=== PATIENT | male | born 1935 | race Caucasian/White ===

== ENCOUNTER 2019-05-12 14:53 | Inpatient (IN) | payer MEDICARE, OTHER ==
[~2019-05-12] VITALS: Ht 182.9 cm; Wt 103.0 kg
[~2019-05-12 14:53] MED LIST: PIPERACILLIN /TAZOBACTAM 3.375 G in IV D5W 50 ML IV ONE
--- NOTE | 2019-05-12 15:00 | NUR ---
LEONARDO MARCUS FROM [facility],DARK VOMITUS SINCE LAST NIGHT. PATIENT A/OX2-3, BREATHING EVEN AND UNLABORED, ATTACHED TO THE MONITOR, NO EPISODE OF VOMITING AT THIS TIME. KEPT COMFORTABLE, NEEDS ATTENDED.WAITING FOR MD SOLITARIO.
[2019-05-12 16:01] LABS: BASOPHILS # (AUTO) 0.1 /CMM (0.0-0.2); BASOPHILS % (AUTO) 0.3 % (0.0-2.0); HEMATOCRIT 54 % (39-51); HEMOGLOBIN 18.4 g/dL (13.5-17.5); LYMPHOCYTES % (AUTO) 5.8 % (20.0-44.0); MEAN CORPUSCULAR HGB CONC 34 g/dl (31.0-36.0); MEAN CORPUSCULAR VOLUME 95 fL (80-96); MONOCYTES # (AUTO) 1.3 /CMM (0.1-1.30); MONOCYTES % (AUTO) 7.3 % (2.0-12.0); NEUTROPHILS # (AUTO) 15.3 /CMM (1.8-8.9); NEUTROPHILS % (AUTO) 86.6 % (43.0-81.0); PLATELET COUNT (AUTO) 236 /CMM (150-450); RED BLOOD CELL COUNT(AUTO) 5.65 MIL/uL (4.5-6.0); WHITE BLOOD COUNT (AUTO) 17.7 K/uL (4.3-11.0)
[2019-05-12 16:13] LABS: ALANINE AMINOTRANSFERASE 19 U/L (12-78); ALBUMIN 3.1 g/dL (3.4-5.0); ALKALINE PHOSPHATASE 63 U/L (46-116); ASPARTATE AMINOTRANSFERASE 15 U/L (15-37); BILIRUBIN,DIRECT 0.1 mg/dL (0.0-0.2); BILIRUBIN,TOTAL 0.7 mg/dL (0.2-1.0); CALCIUM, SERUM 9.5 mg/dL (8.5-10.1); CARBON DIOXIDE 28 mmol/L (21-32); CHLORIDE 100 mmol/L (98-107); GLUCOSE 156 mg/dL (74-106); POTASSIUM 3.7 mmol/L (3.5-5.1); SODIUM SERUM 138 mmol/L (136-145); TOTAL PROTEIN, SERUM 7.2 g/dL (6.4-8.2); UREA NITROGEN, BLOOD 20 mg/dL (7-18)
[2019-05-12] MEDS ORDERED: ONDANSETRON HCL/PF 4 MG/2 ML VIAL ONE (16:26)
[2019-05-12] MEDS ORDERED: IV NS 0.9% 1,000 ML BAG IV ONE (16:30)
[2019-05-12] MEDS ORDERED: ONDANSETRON HCL/PF 4 MG/2 ML VIAL IV ONE (16:30)
--- NOTE | 2019-05-12 17:00 | NUR ---
PATIENT HAD AN EPISODE OF DIARRHEA. PERICARE PROVIDED.
[2019-05-12] MEDS ORDERED: CHOL100044 PO (17:52)
[2019-05-12] MEDS ORDERED: ASPI-1152 PO (17:52)
[2019-05-12] MEDS ORDERED: HYDR-4384 PO (17:52)
[2019-05-12] MEDS ORDERED: DIPH1TAB PO (17:52)
[2019-05-12] MEDS ORDERED: GABA-532 PO (17:52)
[2019-05-12] MEDS ORDERED: FOLI1TAB16 PO (17:52)
--- NOTE | 2019-05-12 19:14 | NUR ---
PT RECEIVED FROM JAUN EASLEY FOR RILEY. AWAITITNG ROOM FOR ADMISSION. NAD NOTED.
[2019-05-12] MEDS ORDERED: NA PHOS,M-B/NA PHOS,DI-BA 1 EA ENEMA RC ONE (19:32)
--- NOTE | 2019-05-12 19:45 | NUR ---
VERBAL ORDER RECEIVED FOR 1L NS BOLUS
--- NOTE | 2019-05-12 19:57 | NUR ---
MD AT BEDSIDE FOR RECTAL DISEMPACTION. ENEMA ALSO ADMINISTERED.
[2019-05-12] MEDS ORDERED: PIPERACILLIN /TAZOBACTAM 3.375 G in IV D5W 50 ML IV ONE (20:30)
[2019-05-12] MEDS ORDERED: ONDANSETRON HCL/PF 4 MG/2 ML VIAL IVP PRN (21:00)
[2019-05-12] MEDS ORDERED: ACETAMINOPHEN 325 MG TABLET PO PRN (21:00)
[2019-05-12] MEDS ORDERED: Z GUARD REMEDY 2 OZ OINT TP PRN (21:00)
[2019-05-12] MEDS ORDERED: MAG HYDROX/AL HYDROX/SIMETH 30 ML UDC PO PRN (21:00)
[2019-05-12] MEDS ORDERED: MAGNESIUM HYDROXIDE 30 ML UDC PO PRN (21:00)
--- NOTE | 2019-05-12 21:09 | NUR ---
REPORT GIVEN TO JAUN RODAS FOR RILEY. PT GOING TO 328-2
--- NOTE | 2019-05-12 21:15 | NUR ---
PT TRANSPORTED TO UNIT WITH EMT AT BEDSIDE. NAD NOTED UPON DISCHRGE TO UNIT. PT IN STABLE CONDITION. TRANSPORTED ON [place]
--- NOTE | 2019-05-12 21:20 | NUR ---
MS RN ADMITTING NOTES RECEIVED PT FROM ER VIA [facility]. PT A/O X3 AND ABLE TO MAKE NEEDS KNOWN. RESPIRATIONS EVEN AND UNLABORED WITH NO S/S OF ACUTE DISTRESS OR SOB NOTED. NO COMPLAINTS OF PAIN AT THIS TIME. PT WITH RWRIST #20G RUNNING NS @75ML/HR. BED IN LOWEST LOCKED POSITION WITH SIDE RAILS UP X2. ORIENTED PT TO UNIT AND ROOM. CALL LIGHT WITHIN REACH. WILL CONTINUE TO MONITOR.
[2019-05-12 22:00] VITALS: BP 118/78
[2019-05-12] MEDS: IV NS 0.9% 1,000 ML IV PRN (22:10)
[2019-05-12] MEDS: GABAPENTIN 100 MG CAPSULE PO SCH (22:11)
[2019-05-13] MEDS ORDERED: PIPERACILLIN /TAZOBACTAM 3.375 G VIAL IV ONE (02:29)
[2019-05-13] MEDS ORDERED: PIPERACILLIN /TAZOBACTAM 3.375 G in IV D5W 50 ML IV ONE (03:00)
[2019-05-13 06:54] LABS: BASOPHILS % (AUTO) 0.1 % (0.0-2.0); EOSINOPHILS % (AUTO) 0.1 % (0.0-6.0); HEMATOCRIT 49 % (39-51); HEMOGLOBIN 16.4 g/dL (13.5-17.5); LYMPHOCYTES % (AUTO) 16.7 % (20.0-44.0); MEAN CORPUSCULAR HGB CONC 34 g/dl (31.0-36.0); MEAN CORPUSCULAR VOLUME 95 fL (80-96); MONOCYTES # (AUTO) 1.1 /CMM (0.1-1.30); MONOCYTES % (AUTO) 9.4 % (2.0-12.0); NEUTROPHILS % (AUTO) 73.7 % (43.0-81.0); PLATELET COUNT (AUTO) 206 /CMM (150-450); RED BLOOD CELL COUNT(AUTO) 5.16 MIL/uL (4.5-6.0); WHITE BLOOD COUNT (AUTO) 12.2 K/uL (4.3-11.0)
[2019-05-13 07:22] LABS: CALCIUM, SERUM 8.3 mg/dL (8.5-10.1); CARBON DIOXIDE 29 mmol/L (21-32); CHLORIDE 104 mmol/L (98-107); CREATININE 1.1 mg/dL (0.6-1.3); GLUCOSE 111 mg/dL (74-106); MAGNESIUM 1.7 mg/dL (1.8-2.4); SODIUM SERUM 143 mmol/L (136-145); UREA NITROGEN, BLOOD 17 mg/dL (7-18)
[2019-05-13 07:42] LABS: CHOLESTEROL 165 mg/dL (<200); HDL CHOLESTEROL 44 mg/dL (40-60); LDL 107 mg/dL (0-99); THYROID STIMULATING HORMONE 0.433 uIU/mL (0.358-3.74); TRIGLYCERIDES 116 mg/dL (30-150)
[2019-05-13 08:00] VITALS: BP 118/74
--- NOTE | 2019-05-13 08:05 | NUR ---
RN MS OPENING NOTES Patient received on room air, no sob noted. Patient comfortable lying down on bed, denies pain at this time. A/O x3. Patient remains on diaper, right wrist #20 remains open, infusing NS 75 mL per hour. Bed at the lowest setting, call light within reach.
--- NOTE | 2019-05-13 08:06 | NUR ---
MS RN NOTES PT IN BED AWAKE AND ABLE TO MAKE NEEDS KNOWN. PT A/O X3. RESPIRATIONS EVEN AND UNLABORED WITH NO S/S OF ACUTE DISTRESS OR SOB NOTED THROUGHOUT SHIFT. PT KEPT CLEAN, DRY, AND COMFORTABLE. NO COMPLAINTS OF PAIN AT THIS TIME. PT WITH RWRIST #20G RUNNING NS @75ML/HR. BED IN LOWEST LOCKED POSITION WITH SIDE RAILS UP X2. CALL LIGHT WITHIN REACH. WILL ENDORSE TO ONCOMING NURSE FOR RILEY.
[2019-05-13] MEDS: CHOLECALCIFEROL 1,000 UNIT TABLET (VIT D3) PO SCH (08:56)
[2019-05-13] MEDS: FAMOTIDINE (20 MG) 20 MG TABLET PO SCH ×2 (08:56→16:22)
[2019-05-13] MEDS: ASPIRIN EC 81 MG TABLET.DR PO SCH (08:56)
[2019-05-13] MEDS: FOLIC ACID 1 MG TABLET PO SCH (08:56)
[2019-05-13] MEDS: PIPERACILLIN /TAZOBACTAM 3.375 G in IV D5W 100 ML IV SCH ×2 (09:00→16:14)
[2019-05-13] MEDS ORDERED: PIPERACILLIN /TAZOBACTAM 3.375 G in IV D5W 50 ML IV SCH (09:00)
[2019-05-13] MEDS ORDERED: POTASSIUM CHLORIDE 20 MEQ POWDER PACKET PO SCH (09:30)
[2019-05-13] MEDS ORDERED: MORPHINE SULFATE INJ 2 MG/ML DISP.SYRIN IV PRN (09:32)
[2019-05-13] MEDS ORDERED: LORAZEPAM INJ 2 MG/ML VIAL IV PRN (10:00)
[2019-05-13] MEDS ORDERED: Magnesium 1GM/D5W 100ML PREMIX 100 ML IV SCH (10:00)
[2019-05-13] MEDS: POTASSIUM CL. PREMIX PERIPHER. 50 ML IV SCH ×2 (10:00→11:00)
[2019-05-13] MEDS ORDERED: Magnesium 1GM/D5W 100ML PREMIX PIGGYBACK IV ONE (10:00)
[2019-05-13] MEDS ORDERED: POTASSIUM CHLORIDE 10 MEQ/50 ML PREMIXED IVPB FOR PERIPHERAL LINE IV ONE (10:00)
--- NOTE | 2019-05-13 11:37 | NUR ---
RN MS NOTES Patient wanted the NGT removed, asked patient 3x if he was sure, explained the benefits of the tube but he still insists on taking it out. Dr Yeung aware.
--- NOTE | 2019-05-13 12:59 | NUR ---
RN MS notes Bladder scan revealed 15-25 mL or urine. Will do a straight cath when it is higher.
[2019-05-13] MEDS: METOCLOPRAMIDE HCL 10 MG/2 ML VIAL IV SCH ×2 (14:35→20:57)
[2019-05-13] MEDS: POLYETHYLENE GLYCOL 3350 17 GM POWD.PACK PO SCH ×2 (15:13→21:02)
[2019-05-13] MEDS: SENNOSIDES/DOCUSATE SODIUM 1 TAB TABLET PO SCH ×2 (15:14→21:02)
[2019-05-13 16:00] VITALS: BP 159/74
--- NOTE | 2019-05-13 16:09 | NUR ---
RN MS NOTES Patient bladder was scanned again, shows 15-20 mL. Patient however had a bowel movement.
--- NOTE | 2019-05-13 18:05 | NUR ---
RN MS CLOSING NOTES Patient remains on room air, no sob noted. Patient remains a/o x3, Patient denies pain at this time. Patient had 2 BM today, mixture of watery but formed bowel movement. patient remains on clear liquid diet. IV fluid remains at NS 75 mL per hour on patients right wrist, 20 gauge. Mag replaced, potassium replaced. Bed at the lowest setting, call light within reach, will give report to NOC rn for RILEY bedside.
[2019-05-13] MEDS: IV NS 0.9% 1,000 ML IV PRN (18:39)
--- NOTE | 2019-05-13 19:05 | NUR ---
RN MS NOTES RECEIVED PATIENT IN BED AWAKE ALERT AND ORIENTED X2-3 , NOTED PERIODS OF FORGETFULNESS, RESPIRATIONS EVEN AND UNLABORED WITH EQUAL RISE AND FALL OF CHEST, DENIES ANY PAIN OR DISCOMFORT AT THIS TIME, IV SITE TO RIGHT WRIST #20 G INTACT AND PATENT, NO REDNESS, NO INFILTRATION PRESENT, IVF RUNNING ORDERED, PATIENT IS ON CLEAR LIQUID DIET AND AWARE, ORIENTED TO STAFF AND CALL LIGHT AND KEPT WITHIN REACH , SAFETY PRECAUTIONS IN PLACE, LOW BED AND LOCKED, ALL NEEDS ATTENDED AT THIS TIME, WILL CONTINUE TO MONITOR AND ATTEND TO NEEDS. PATIENT AWARE NEED OF URINE CULTURE WILL TRY CLEAN CATCH.
[2019-05-13 20:00] VITALS: BP 130/66
[2019-05-13] MEDS: BISACODYL SUPP (10 MG) 10 MG/SUPP.RECT SUPP.RECT RC SCH ×2 (20:59→21:00)
[2019-05-13] MEDS: GABAPENTIN 100 MG CAPSULE PO SCH (21:04)
[2019-05-13] MEDS ORDERED: NA PHOS,M-B/NA PHOS,DI-BA 1 EA ENEMA RC PRN (22:00)
[2019-05-13 22:33] LABS: APPEARANCE,URINE TURBID (CLEAR); BILIRUBIN,URINE 1+ (NEGATIVE); BLOOD, URINE TRACE-INTA Ery/uL (NEGATIVE); COLOR,URINE YELLOW (YELLOW); KETONES,URINE TRACE (NEGATIVE); LEUKOCYTE ESTERASE ,URINE TRACE (NEGATIVE); NITRITE, URINE NEGATIVE (NEGATIVE); PROTEIN,URINE 1+ mg/dl (NEGATIVE); UGLUCOSE NEGATIVE (NEGATIVE)
[2019-05-13 23:12] LABS: BACTERIA,URINE Few /HPF (None Seen); SQUAMOUS EPITHELIAL CELL,UR Rare /HPF (None Seen)
[2019-05-13 23:13] LABS: URINE AMORPHOUS URATE Many /HPF (None Seen)
[2019-05-14] MEDS: PIPERACILLIN /TAZOBACTAM 3.375 G in IV D5W 100 ML IV SCH (00:54)
--- NOTE | 2019-05-14 01:26 | NUR ---
RN MS NOTES AWAITING DR TURNER RESPONSE FOR URINE ANALYSIS RESULTS, WILL CONTINUE TO FOLLOW UP.
[2019-05-14] MEDS: METOCLOPRAMIDE HCL 10 MG/2 ML VIAL IV SCH ×4 (02:37→21:23)
--- NOTE | 2019-05-14 02:44 | NUR ---
RN MS NOTES PATIENT AT FIRST AGREED TO DUCOLAX SUPPOSITORY THAN REFUSED, STATES " I DONT WANT IT ANYMORE", MEDICATION RETURNED, PATIENT IS HAVING BM.
--- NOTE | 2019-05-14 04:40 | NUR ---
rn ms notes made hospitalist aware of urine analysis profile results no new orders at this time.
[2019-05-14] MEDS: POLYETHYLENE GLYCOL 3350 17 GM POWD.PACK PO SCH ×4 (05:00→21:23)
--- NOTE | 2019-05-14 05:35 | NUR ---
rn ms notes patient made aware of miralax scheduled per patient would like to "hold off on it, does not want to take it so many laxatives " patient has had 3 bowel movement this shift.
--- NOTE | 2019-05-14 05:45 | NUR ---
rn ms notes patient now states " i want to take the miralax". asked patient again if he is sure he wants to take stated "yes,might as well" will give as scheduled
[2019-05-14 06:21] LABS: BASOPHILS % (AUTO) 0.5 % (0.0-2.0); EOSINOPHILS % (AUTO) 0.6 % (0.0-6.0); HEMATOCRIT 43 % (39-51); HEMOGLOBIN 14.4 g/dL (13.5-17.5); LYMPHOCYTES # (AUTO) 1.5 /CMM (0.8-4.8); LYMPHOCYTES % (AUTO) 18.3 % (20.0-44.0); MEAN CORPUSCULAR HGB CONC 34 g/dl (31.0-36.0); MEAN CORPUSCULAR VOLUME 95 fL (80-96); MONOCYTES # (AUTO) 0.8 /CMM (0.1-1.30); MONOCYTES % (AUTO) 9.4 % (2.0-12.0); NEUTROPHILS % (AUTO) 71.2 % (43.0-81.0); PLATELET COUNT (AUTO) 171 /CMM (150-450); RED BLOOD CELL COUNT(AUTO) 4.52 MIL/uL (4.5-6.0); WHITE BLOOD COUNT (AUTO) 8.4 K/uL (4.3-11.0)
[2019-05-14 06:34] LABS: CALCIUM, SERUM 7.5 mg/dL (8.5-10.1); CARBON DIOXIDE 29 mmol/L (21-32); CHLORIDE 101 mmol/L (98-107); CREATININE 0.8 mg/dL (0.6-1.3); GLUCOSE 91 mg/dL (74-106); MAGNESIUM 1.8 mg/dL (1.8-2.4); SODIUM SERUM 135 mmol/L (136-145); UREA NITROGEN, BLOOD 12 mg/dL (7-18)
[2019-05-14 06:37] LABS: POTASSIUM 2.8 mmol/L (3.5-5.1)
--- NOTE | 2019-05-14 06:53 | NUR ---
RN MS CLOSING NOTES PATIENT IN BED AWAKE ALERT AND ORIENTED X2-3 , NOTED PERIODS OF FORGETFULNESS, RESPIRATIONS EVEN AND UNLABORED WITH EQUAL RISE AND FALL OF CHEST, DENIES ANY PAIN OR DISCOMFORT AT THIS TIME, IV SITE TO RIGHT WRIST #20 G INTACT AND PATENT, NO REDNESS, NO INFILTRATION PRESENT, IVF RUNNING ORDERED, PATIENT IS ON CLEAR LIQUID DIET AND AWARE, CALL LIGHT KEPT WITHIN REACH , SAFETY PRECAUTIONS IN PLACE, LOW BED AND LOCKED, ALL NEEDS ATTENDED AT THIS TIME, WILL CONTINUE TO MONITOR AND ATTEND TO NEEDS. HAD X 3 BM THROUGHOUT SHIFT, SKIN ASSESSED, NO FURTHER CHANGES NOTES SACRAL INTACT HEELS INTACT, ZGUARD APPLIED FOR REDNESS TO GROIN , SACRAL AND ABD FOLDS KEPT CLEAN AND DRY. Addendum: 05/14/19 at 0707 by LIANNA HATFIELD RN ATTEMPTED TO REACH HOSPITALIST FOR POTASSIUM LAB RESULTS 2.8 UNABLE TO REACH WILL ENDORSE TO NEXT SHIFT.
--- NOTE | 2019-05-14 07:54 | NUR ---
RN MS OPENING NOTES Patient received on room air, no sob noted, a/o x3, patient denies pain at this time. Patient able to have 2 bowel movements yesterday and 3 bowel movements last night. Patient remains on clear liquid diet. Potassium reported by the lab to be at 2.8. Bed at the lowest setting, call light within reach.
[2019-05-14 08:00] VITALS: BP 133/79
[2019-05-14] MEDS ORDERED: POTASSIUM CL. PREMIX PERIPHER. 50 ML IV ONE (08:00)
[2019-05-14] MEDS ORDERED: POTASSIUM CHLORIDE 20 MEQ TAB.PRT.SR PO SCH (08:00)
[2019-05-14] MEDS ORDERED: POTASSIUM CHLORIDE 20 MEQ POWDER PACKET PO ONE (08:00)
[2019-05-14] MEDS: FOLIC ACID 1 MG TABLET PO SCH (08:13)
[2019-05-14] MEDS: ASPIRIN EC 81 MG TABLET.DR PO SCH (08:13)
[2019-05-14] MEDS: SENNOSIDES/DOCUSATE SODIUM 1 TAB TABLET PO SCH ×2 (08:13→21:23)
[2019-05-14] MEDS: CHOLECALCIFEROL 1,000 UNIT TABLET (VIT D3) PO SCH (08:13)
[2019-05-14] MEDS: FAMOTIDINE (20 MG) 20 MG TABLET PO SCH ×2 (08:13→16:48)
[2019-05-14] MEDS: IV NS 0.9% 1,000 ML IV PRN ×2 (08:33→16:51)
[2019-05-14] MEDS: BISACODYL SUPP (10 MG) 10 MG/SUPP.RECT SUPP.RECT RC SCH ×2 (08:34→21:00)
[2019-05-14] MEDS: CEFTRIAXONE 1 G in IV D5W 50 ML IV SCH (09:10)
[2019-05-14 16:00] VITALS: BP 124/63
--- NOTE | 2019-05-14 18:04 | NUR ---
RN MS NOTES CLOSING Patient remains on room air, no sob noted. A/O x3, patient able to have a bowel movement today x3. Patient remains on clear liquid diet, NS 50 mL per hour with right wrist #20 gauge. Potassium replaced, kub done in am. Patient denies pain at this time. Patient's bed at the lowest setting, [facility] light within reach, will give report to NOC RN for RILEY bedside.
--- NOTE | 2019-05-14 19:00 | NUR ---
RN MS NOTES RECEIVED PATIENT IN BED AWAKE ALERT AND ORIENTED X2-3 , NOTED PERIODS OF FORGETFULNESS, RESPIRATIONS EVEN AND UNLABORED WITH EQUAL RISE AND FALL OF CHEST, DENIES ANY PAIN OR DISCOMFORT AT THIS TIME, IV SITE TO RIGHT WRIST #20 G INTACT AND PATENT, NO REDNESS, NO INFILTRATION PRESENT, IVF RUNNING ORDERED, PATIENT IS ON CLEAR LIQUID DIET AND AWARE, ORIENTED TO STAFF AND CALL LIGHT AND KEPT WITHIN REACH , SAFETY PRECAUTIONS IN PLACE, LOW BED AND LOCKED, ALL NEEDS ATTENDED AT THIS TIME, WILL CONTINUE TO MONITOR AND ATTEND TO NEEDS. PATIENT REPOSITIONED HEELS OFFLOADED, MADE AWARE OF WEDNESDAY PICTURES PATIENT AGREED WILL CONTINUE TO MONITOR.
[2019-05-14 20:00] VITALS: BP 110/69
--- NOTE | 2019-05-14 21:00 | NUR ---
RN MS NOTES PATIENT REFUSED DUCOLAX SUPPOSITORY MADE AWARE OF RISK AND BENEFIT PATIENT REFUSED X3. STATES "I DONT WANT IT"
[2019-05-14] MEDS: GABAPENTIN 100 MG CAPSULE PO SCH (21:23)
[2019-05-15] MEDS: METOCLOPRAMIDE HCL 10 MG/2 ML VIAL IV SCH ×4 (02:48→20:46)
[2019-05-15] MEDS: POLYETHYLENE GLYCOL 3350 17 GM POWD.PACK PO SCH ×3 (05:00→20:54)
--- NOTE | 2019-05-15 07:15 | NUR ---
RN MS CLOSING NOTES PATIENT IN BED AWAKE ALERT AND ORIENTED X2-3 , NOTED PERIODS OF FORGETFULNESS, RESPIRATIONS EVEN AND UNLABORED WITH EQUAL RISE AND FALL OF CHEST, DENIES ANY PAIN OR DISCOMFORT AT THIS TIME, IV SITE TO RIGHT WRIST #20 G INTACT AND PATENT, NO REDNESS, NO INFILTRATION PRESENT, IVF RUNNING ORDERED, PATIENT IS ON CLEAR LIQUID DIET AND AWARE, CALL LIGHT KEPT WITHIN REACH , SAFETY PRECAUTIONS IN PLACE, LOW BED AND LOCKED, ALL NEEDS ATTENDED AT THIS TIME, WILL CONTINUE TO MONITOR AND ATTEND TO NEEDS. PATIENT REPOSITIONED HEELS OFFLOADED, REMAINS COMFORTABLE , AND ENDORSE TO NEXT SHIFT.
--- NOTE | 2019-05-15 07:30 | NUR ---
MS RN AM NOTES RECEIVED PATIENT IN BED,AWAKE ALERT AND ORIENTED X2-3, ON ROOM AIR, RESPIRATIONS EVEN AND UNLABORED, DENIES ANY PAIN OR DISCOMFORT AT THIS TIME, RIGHT WRIST #20 G WITH NS AT 50 ML/HR SITE CLEAR, CLEAR LIQUID DIET, CALL LIGHT WITHIN REACH , SAFETY PRECAUTIONS IN PLACE, LOW BED AND LOCKED, TURNING AND REPOSITIONING Q 2HOURS, WILL CONTINUE TO MONITOR AND ATTEND TO NEEDS.
[2019-05-15 08:00] VITALS: BP 125/70
[2019-05-15 08:11] LABS: CALCIUM, SERUM 7.6 mg/dL (8.5-10.1); CARBON DIOXIDE 28 mmol/L (21-32); CHLORIDE 101 mmol/L (98-107); CREATININE 0.8 mg/dL (0.6-1.3); GLUCOSE 89 mg/dL (74-106); SODIUM SERUM 137 mmol/L (136-145); UREA NITROGEN, BLOOD 6 mg/dL (7-18)
[2019-05-15] MEDS: BISACODYL SUPP (10 MG) 10 MG/SUPP.RECT SUPP.RECT RC SCH ×2 (08:51→20:55)
[2019-05-15] MEDS: CHOLECALCIFEROL 1,000 UNIT TABLET (VIT D3) PO SCH (09:00)
[2019-05-15] MEDS: FOLIC ACID 1 MG TABLET PO SCH (09:00)
[2019-05-15] MEDS: ASPIRIN EC 81 MG TABLET.DR PO SCH (09:00)
[2019-05-15] MEDS: SENNOSIDES/DOCUSATE SODIUM 1 TAB TABLET PO SCH ×2 (09:00→20:54)
[2019-05-15] MEDS: FAMOTIDINE (20 MG) 20 MG TABLET PO SCH ×2 (09:00→17:19)
[2019-05-15] MEDS: CEFTRIAXONE 1 G in IV D5W 50 ML IV SCH (09:00)
--- NOTE | 2019-05-15 09:30 | NUR ---
MS RN NOTES DUE MEDS GIVEN
[2019-05-15] MEDS: POTASSIUM CHLORIDE 20 MEQ TAB.PRT.SR PO SCH ×3 (11:33→13:01)
[2019-05-15] MEDS: IV NS 0.9% 1,000 ML IV PRN (13:01)
[2019-05-15 16:00] VITALS: BP 120/77
--- NOTE | 2019-05-15 19:00 | NUR ---
RN medsurg opening notes Received Pt from morning nurse. Pt is alert and oriented X4. Pt is laying in bed having dinner. respiration is normal. No SOB. No nausea or vomiting. Pt denies any pain or discomfort at this time. IV sites at Right wrist # 20 is intact, patent and SL. Safety precautions is maintained. Bed at low position, brakes on, side rails upX2 and call light is within reach. Will continue to monitor for RILEY.
--- NOTE | 2019-05-15 19:30 | NUR ---
RN medsurg notes Spoke with TIERNEY Yeung about Pt's POC. TIERNEY Yeung ordered KUB for tomorrow morning and changed Pt's diet to soft diet. Pt have good bowel sounds, good BM and refused to have meds insert in the rectum. TIERNEY Yeung is informed and aware. Ordered carried away and will continue to monitor.
[2019-05-15 20:00] VITALS: BP_SYST 113; BP_DIAS 85; BP_DIAS 89
--- NOTE | 2019-05-15 20:26 | NUR ---
RN medsurg notes Called pharmacy,[facility] regarding PT's meds Erythromycin. [facility] said "It takes sometimes". Will continue to wait.
[2019-05-15] MEDS: ERYTHROMYCIN 250 MG in IV NS 0.9% 100 ML IV SCH (20:45)
--- NOTE | 2019-05-15 20:54 | NUR ---
RN medsurg notes Pt refused meds: Miralax, Senokot and Dulcolax Supp rect. Pt stated " I don't need it." Educate and teaching Pt about the benefits of taking meds. Pt still refuse the meds. Will continue to monitor.
[2019-05-15] MEDS: GABAPENTIN 100 MG CAPSULE PO SCH (21:13)
--- NOTE | 2019-05-15 21:17 | NUR ---
RN medsurg notes Pt refused Neurontin medication. Pt teaching and educating the Pt about the benefits of taking meds. Pt still refused the meds.
--- NOTE | 2019-05-15 23:00 | NUR ---
RN medsur notes Pt is resting in bed comfortably with eyes closed. Awaken easily. No SOB. No nausea or vomiting. No S/S of distress noted. Repositioning and turning Q 2hr. Offloaded both heels and both elbows. Will continue to monitor.
[2019-05-16] MEDS: ERYTHROMYCIN 250 MG in IV NS 0.9% 100 ML IV SCH ×3 (02:14→15:08)
[2019-05-16] MEDS: METOCLOPRAMIDE HCL 10 MG/2 ML VIAL IV SCH ×4 (02:43→21:12)
[2019-05-16] MEDS: POLYETHYLENE GLYCOL 3350 17 GM POWD.PACK PO SCH ×3 (05:00→20:51)
--- NOTE | 2019-05-16 05:04 | NUR ---
RN medsurg notes Pt refused Miralax 17gm. Pt education and teaching given. Made aware the risks and benefit of taking meds. Pt still refused.
--- NOTE | 2019-05-16 06:52 | NUR ---
RN medsurg closing notes Pt is alert and oriented X3. Pt is laying in bed comfortably. Awaken easily. No SOB. NO S/S of distress noted. No nausea or vomiting. VS is stable. Afebrile. IV sites at Right wrist is intact, patent, clean and infusing NS @ 50 ml/hr. All needs met. Skin care provided. Pt had 4 BM. Safety precautions is maintained. Bed at low position and call light is within reach. Will endorse to morning nurse for RILEY.
[2019-05-16 08:00] VITALS: BP 132/84
[2019-05-16 08:04] LABS: CALCIUM, SERUM 7.7 mg/dL (8.5-10.1); CARBON DIOXIDE 25 mmol/L (21-32); CHLORIDE 103 mmol/L (98-107); CREATININE 0.6 mg/dL (0.6-1.3); GLUCOSE 101 mg/dL (74-106); POTASSIUM 3.1 mmol/L (3.5-5.1); SODIUM SERUM 136 mmol/L (136-145); UREA NITROGEN, BLOOD 5 mg/dL (7-18)
[2019-05-16 08:32] LABS: BASOPHILS % (AUTO) 0.2 % (0.0-2.0); EOSINOPHILS % (AUTO) 1.6 % (0.0-6.0); HEMATOCRIT 42 % (39-51); HEMOGLOBIN 14.4 g/dL (13.5-17.5); LYMPHOCYTES # (AUTO) 1.4 /CMM (0.8-4.8); LYMPHOCYTES % (AUTO) 24.7 % (20.0-44.0); MEAN CORPUSCULAR HGB CONC 34 g/dl (31.0-36.0); MEAN CORPUSCULAR VOLUME 93 fL (80-96); MONOCYTES # (AUTO) 0.6 /CMM (0.1-1.30); MONOCYTES % (AUTO) 10.7 % (2.0-12.0); NEUTROPHILS # (AUTO) 3.6 /CMM (1.8-8.9); NEUTROPHILS % (AUTO) 62.8 % (43.0-81.0); PLATELET COUNT (AUTO) 162 /CMM (150-450); RED BLOOD CELL COUNT(AUTO) 4.54 MIL/uL (4.5-6.0); WHITE BLOOD COUNT (AUTO) 5.8 K/uL (4.3-11.0)
[2019-05-16] MEDS: BISACODYL SUPP (10 MG) 10 MG/SUPP.RECT SUPP.RECT RC SCH ×2 (09:00→20:51)
[2019-05-16] MEDS: FAMOTIDINE (20 MG) 20 MG TABLET PO SCH ×3 (09:01→18:13)
[2019-05-16] MEDS: POTASSIUM CHLORIDE 20 MEQ POWDER PACKET PO SCH ×2 (09:01→10:21)
[2019-05-16] MEDS: SENNOSIDES/DOCUSATE SODIUM 1 TAB TABLET PO SCH ×2 (09:01→20:51)
[2019-05-16] MEDS: FOLIC ACID 1 MG TABLET PO SCH (09:02)
[2019-05-16] MEDS: CHOLECALCIFEROL 1,000 UNIT TABLET (VIT D3) PO SCH (09:02)
[2019-05-16] MEDS: ASPIRIN EC 81 MG TABLET.DR PO SCH (09:04)
[2019-05-16] MEDS ORDERED: MAGNESIUM CITRATE 296 ML BOTTLE PO ONE (11:00)
[2019-05-16] MEDS ORDERED: POTASSIUM CHLORIDE 20 MEQ POWDER PACKET PO ONE (11:00)
[2019-05-16 16:00] VITALS: BP 128/80
--- NOTE | 2019-05-16 17:00 | NUR ---
oral potassium replacement given.pt. refusing miralax and citrate of magnesia.had total of 3 loose stools.
--- NOTE | 2019-05-16 19:34 | NUR ---
MS RN RECEIVE PT IN BED WATCHING TV A/O X 3, STABLE, RESPIRATIONS EVEN AND UNLABORED, SAFETY MEASURES IN PLACE. WILL CONTINUE TO MONITOR
[2019-05-16 20:00] VITALS: BP 130/71
[2019-05-16 20:30] VITALS: BP 130/77
[2019-05-16] MEDS ORDERED: PEG 3350/NA SULF,BICARB,CL/KCL 4,000 ML BOTTLE PO ONE (20:30)
--- NOTE | 2019-05-16 20:30 | NUR ---
PT REFUSED GOLYTELY DESPITE EXPLAINING RISKS AND BENEFITS PER PT "I DONT WANT IT" OFFERED 3 TIMES STILL REFUSED, EDUCATED PT IMPORTANCE OF GOLYTELY VERBALIZED UNDERSTANDING STILL REFUSED.
[2019-05-16] MEDS: ERYTHROMYCIN BASE (250 MG) 250 MG CAPSULE.DR PO SCH (21:00)
--- NOTE | 2019-05-16 21:00 | NUR ---
NON ADMIN MED PATIENT REFUSED ALL PO MEDICATIONS ERYTHROMYCIN 250 MG, MIRALAX 17 GM, DULCOLAX SUPP 10 MG, SENNA,GABAPENTIN DUE AT HS DESPITE EXPLAINING RISKS AND BENEFITS OFFERED 3 TIMES STILL REFUSED. ASKED PT WHY HE IS REFUSING HIS MEDICATION PT VERBALIZED "I'VE ALREADY HAD SEVERE DIARRHEA AFTER LUNCH. LEAVE ME ALONE I JUST WANNA REST I REFUSED ALL MEDICATION" EDUCATED PATIENT VERBALIZED UNDERSTANDING.
--- NOTE | 2019-05-16 21:00 | NUR ---
MS RN PT ALSO REFUSED INSERT RECTAL TUBE, AND FLEET ENEMA DESPITE EXPLAINING RISKS AND BENEFITS OFFERED 3 TIMES STILL REFUSED PER PT " LEAVE ME ALONE". HOSPITALIST AWARE.
[2019-05-16] MEDS: IV NS 0.9% 1,000 ML IV PRN (21:11)
[2019-05-16] MEDS: GABAPENTIN 100 MG CAPSULE PO SCH (21:19)
[2019-05-17] MEDS: METOCLOPRAMIDE HCL 10 MG/2 ML VIAL IV SCH ×3 (02:03→15:16)
[2019-05-17] MEDS: ERYTHROMYCIN BASE (250 MG) 250 MG CAPSULE.DR PO SCH ×2 (05:00→12:09)
[2019-05-17] MEDS: POLYETHYLENE GLYCOL 3350 17 GM POWD.PACK PO SCH ×2 (05:00→12:09)
--- NOTE | 2019-05-17 05:24 | NUR ---
PATIENT REFUSED ERYTHROMYCIN PO ATB 250 MG AND MIRALAX DUE AT 0500 DESPITE EXPLAINING RISKS AND BENEFITS OFFERED 3 TIMES STILL REFUSED PER PT"PLEASE LEAVE ME ALONE".
--- NOTE | 2019-05-17 06:16 | NUR ---
MS RN ASLEEP AND EASILY AWAKEN, RESPIRATIONS EVEN AND UNLABORED. SLEPT WELL THROUGHOUT THE NIGHT. KEPT CLEAN AND DRY AND COMFORTABLE. NEEDS ATTENDED AND ANTICIPATED, NURSING CARE RENDERED, PT NON COMPLIANT WITH MEDICATION. EDUCATED PT VERBALIZED UNDERSTANDING. NO C/O OF PAIN. ASSISTED REPOSITION Q2H. SAFETY MEASURES AT ALL TIMES. ENDORSE TO THE NEXT SHIFT. Addendum: 05/17/19 at 0617 by DANIA LUNSFORD RN OFFLOAD HEELS AND ELBOWS AT ALL TIMES
[2019-05-17 08:00] VITALS: BP 134/83
[2019-05-17 08:59] LABS: CARBON DIOXIDE 24 mmol/L (21-32); CHLORIDE 103 mmol/L (98-107); CREATININE 0.7 mg/dL (0.6-1.3); GLUCOSE 106 mg/dL (74-106); POTASSIUM 3.3 mmol/L (3.5-5.1); SODIUM SERUM 136 mmol/L (136-145); UREA NITROGEN, BLOOD 3 mg/dL (7-18)
[2019-05-17] MEDS: BISACODYL SUPP (10 MG) 10 MG/SUPP.RECT SUPP.RECT RC SCH (08:59)
[2019-05-17] MEDS: FOLIC ACID 1 MG TABLET PO SCH (08:59)
[2019-05-17] MEDS: FAMOTIDINE (20 MG) 20 MG TABLET PO SCH (08:59)
[2019-05-17] MEDS: CHOLECALCIFEROL 1,000 UNIT TABLET (VIT D3) PO SCH (08:59)
[2019-05-17] MEDS: SENNOSIDES/DOCUSATE SODIUM 1 TAB TABLET PO SCH (08:59)
[2019-05-17] MEDS: ASPIRIN EC 81 MG TABLET.DR PO SCH (08:59)
[2019-05-17] MEDS ORDERED: POTASSIUM CHLORIDE 20 MEQ POWDER PACKET PO ONE (11:00)
[2019-05-17] MEDS ORDERED: MINERAL OIL 133 ML (PYXIS) 1 EA ENEMA RC ONE (11:00)
[2019-05-17 16:00] VITALS: BP 133/81
--- NOTE | 2019-05-17 16:00 | NUR ---
RN CLOSING NOTE PATIENT DISCHARGED TO [facility]. REPORT CALLED TO EMERALD. PICTURES TAKEN AND PLACED IN CHART. PAPERWORK COMPLETED AND SIGNED. IV SITE AND ID BAND REMOVED. LEFT VIA AMBULANCE. VITAL SIGNS TEMP: 98.6/ B/P: 133/81 HR: 53 RR: 18 PULSE OX: 96%.
== END 2019-05-17 16:15 | DRG 389 ==
LOC: ER 14:57 → MED 21:06
PROVIDERS: ADMIT Nurse Practitioner Acute Care; ATTEND Nurse Practitioner Acute Care
DX: K56.41 Fecal impaction (principal); K56.699 Other intestinal obstruction unspecified as to partial versus complete obstruction; E44.1 Mild protein-calorie malnutrition; I10 Essential (primary) hypertension; E86.0 Dehydration; E87.6 Hypokalemia; E78.5 Hyperlipidemia, unspecified; I25.10 Atherosclerotic heart disease of native coronary artery without angina pectoris; E83.42 Hypomagnesemia; M17.0 Bilateral primary osteoarthritis of knee; G89.4 Chronic pain syndrome; I70.0 Atherosclerosis of aorta; Z98.890 Other specified postprocedural states; Z79.82 Long term (current) use of aspirin; Z79.899 Other long term (current) drug therapy; E66.9 Obesity, unspecified; Z68.30 Body mass index [BMI] 30.0-30.9, adult; Z95.5 Presence of coronary angioplasty implant and graft; Z90.49 Acquired absence of other specified parts of digestive tract; Z85.828 Personal history of other malignant neoplasm of skin; D72.829 Elevated white blood cell count, unspecified; G31.84 Mild cognitive impairment of uncertain or unknown etiology
CPT/HCPCS: 36415; 71045-TC; 74018; 80048-TC; 80061-TC; 80076-TC; 81000-TC; 83605-TC; 83735-TC; 84100-TC; 84443-TC; 84484-TC; 85025-TC; 87040-TC; 87081-TC; 87086-TC; 97112-TC; 97530-TC; G0378; J0696; J1364; J2060; J2270; J2405; J2543; J2765; J3475; J3480; J7030; J7060